=== PATIENT | male | born 1945 | race African-American/Black ===

== ENCOUNTER 2022-05-05 08:17 | Inpatient (IN) | payer BC, MEDICAID ==
[~2022-05-05] VITALS: Ht 175.3 cm; Wt 98.1 kg
[~2022-05-05 08:17] MED LIST: BENZ100C86 MT
[2022-05-05] MEDS ORDERED: IPRATROPIUM BROMIDE (0.02%) 0.5MG/2.5ML NEB HHN STA (09:04)
[2022-05-05] MEDS ORDERED: ALBUTEROL (0.083%) 2.5MG/3ML NEB HHN STA (09:04)
[2022-05-05] MEDS ORDERED: PREDNISONE 20MG TABLET PO STA (09:04)
[2022-05-05 10:01] LABS: EOSINOPHILS % 2.4 % (0.0-5.0); HEMATOCRIT. 49.5 % (42.0-52.0); HEMOGLOBIN. 16.5 g/dL (14.0-18.0); LYMPHOCYTES % 36.7 % (20.0-50.0); MEAN CORPUSCULAR HEMOGLOBIN 31.1 pg (28.0-32.0); MEAN CORPUSCULAR VOLUME 93.4 fL (80.0-94.0); MEAN PLATELET VOLUME 9.2 fl (7.4-10.4); MONOCYTES % 9.5 % (2.0-8.0); NEUTROPHILS % 50.4 % (40.0-76.0); PLATELET 134 x1000/uL (130-400); RED CELL DISTRIBUTION WIDTH 14.2 % (11.6-14.6)
[2022-05-05 10:01] LABS: BG BASE EXCESS -0.4 mmol/L (-2.0-2.0); BG CARBOXYHEMOGLOBIN 1.4 % (0.5-1.5); BG DEOXYHEMOGLOBIN 3.7 % (0.0-5.0); BG FRACTION INSPIRED OXYGEN 60; BG HCO3 ACT 24.4 mmol/L (22.0-26.0); BG METHEMOGLOBIN 0.5 % (0.0-1.5); BG OXYGEN SATURATION 96.2 % (92.0-98.5); BG OXYHEMOGLOBIN 94.4 % (94.0-97.0); BG PCO2 40.8 mmHg (35.0-45.0); BG PH 7.395 (7.350-7.450); BG PO2 81.5 mmHg (75.0-100.0); BG SAMPLE SITE RIGHT RADIAL; BG TOTAL HEMOGLOBIN 17.3 g/dL (12.0-18.0); BG VENT MODE HHN
[2022-05-05 10:09] LABS: CHLORIDE 104 mEq/L (98-107)
[2022-05-05] MEDS ORDERED: CLONIDINE 0.1MG TABLET PO PRN (12:45)
[2022-05-05] MEDS ORDERED: DIPHENHYDRAMINE 50MG/ML VIAL IV PRN (12:45)
[2022-05-05] MEDS ORDERED: ONDANSETRON HCL 4MG/2ML INJ IV PRN (12:45)
[2022-05-05] MEDS ORDERED: ACETAMINOPHEN 325MG TABLET PO PRN (12:45)
[2022-05-05] MEDS ORDERED: IPRATROPIUM/ALBUTEROL 0.5-3(2.5)MG/3ML NEB HHN PRN (12:45)
[2022-05-05] MEDS ORDERED: IPRATROPIUM/ALBUTEROL 0.5-3(2.5)MG/3ML NEB HHN ONE (15:15)
[2022-05-05 19:52] VITALS: BP 149/97
[2022-05-05 20:00] VITALS: BP 163/102
[2022-05-05] MEDS: IPRATROPIUM/ALBUTEROL 0.5-3(2.5)MG/3ML NEB HHN SCH (20:45)
[2022-05-05] MEDS: BUDESONIDE 0.5MG/2ML NEB HHN SCH (20:45)
[2022-05-06] VITALS: BP 138/90
[2022-05-06] MEDS: IPRATROPIUM/ALBUTEROL 0.5-3(2.5)MG/3ML NEB HHN SCH ×4 (01:35→12:05)
[2022-05-06 04:00] VITALS: BP 136/91
[2022-05-06] MEDS ORDERED: DEXTROSE 50% WATER 50ML SYRINGE IV PRN (07:15)
[2022-05-06 07:23] LABS: BASOPHILS % 0.6 % (0.0-2.0); EOSINOPHILS % 0.3 % (0.0-5.0); HEMATOCRIT. 48.5 % (42.0-52.0); HEMOGLOBIN. 16.3 g/dL (14.0-18.0); LYMPHOCYTES % 30.6 % (20.0-50.0); MEAN CORPUSCULAR HEMOGLOBIN 31.3 pg (28.0-32.0); MEAN PLATELET VOLUME 9.3 fl (7.4-10.4); MONOCYTES % 11.3 % (2.0-8.0); NEUTROPHILS % 57.2 % (40.0-76.0); PLATELET 125 x1000/uL (130-400); RED BLOOD CELL COUNT 5.21 mill/uL (4.7-6.1); RED CELL DISTRIBUTION WIDTH 14.3 % (11.6-14.6)
[2022-05-06 08:00] VITALS: BP 136/81
[2022-05-06] MEDS: INSULIN LISPRO 100 UNITS/ML SUBCUT SCH ×2 (08:00→12:54)
[2022-05-06 08:41] LABS: CHLORIDE 104 mEq/L (98-107)
[2022-05-06] MEDS: BUDESONIDE 0.5MG/2ML NEB HHN SCH (09:02)
[2022-05-06] MEDS ORDERED: BLOOD SUGAR DIAGNOSTIC STRIP TEST SCH (11:40)
[2022-05-06 12:00] VITALS: BP 130/88
[2022-05-06 13:27] VITALS: BP 130/88
== END 2022-05-06 14:15 | disposition home or self-care (01) | DRG 189 ==
LOC: ER 08:17 → EDBEDREQ 10:55 → 7EST 12:39 → EDBEDREQTM 12:46 → EDBEDREQSVC 12:46 → EDBEDREQ 12:46 → ENRESERV 16:07
PROVIDERS: ADMIT Internal Medicine; ATTEND Internal Medicine
DX: J96.01 Acute respiratory failure with hypoxia (principal); J44.1 Chronic obstructive pulmonary disease with (acute) exacerbation; I10 Essential (primary) hypertension; E11.9 Type 2 diabetes mellitus without complications; E78.00 Pure hypercholesterolemia, unspecified; R74.01 Elevation of levels of liver transaminase levels; Z91.14 Patient's other noncompliance with medication regimen
CPT/HCPCS: 36415; 36600; 71045; 80053; 82375; 82805; 82962; 83036; 83880; 84484; 85025; 93970; 94640; 94664; 99285; J1815; J7512; J7626

== ENCOUNTER 2022-05-08 07:14 | Inpatient (IN) | payer BC, MEDICAID ==
[~2022-05-08] VITALS: Ht 175.3 cm; Wt 99.8 kg
[2022-05-08] MEDS ORDERED: ALBUTEROL (0.083%) 2.5MG/3ML NEB HHN STA (07:40)
[2022-05-08] MEDS ORDERED: METHYLPREDNISOLONE SOD SUCC 125 MG/2 ML VIAL IV STA (07:40)
[2022-05-08] MEDS ORDERED: IPRATROPIUM BROMIDE (0.02%) 0.5MG/2.5ML NEB HHN STA (07:40)
[2022-05-08 09:21] LABS: CHLORIDE 105 mEq/L (98-107)
[2022-05-08 09:23] LABS: BASOPHILS % 0.7 % (0.0-2.0); EOSINOPHILS % 0.8 % (0.0-5.0); HEMATOCRIT. 48.9 % (42.0-52.0); HEMOGLOBIN. 16.2 g/dL (14.0-18.0); LYMPHOCYTES % 25.7 % (20.0-50.0); MEAN CORPUSCULAR VOLUME 93.2 fL (80.0-94.0); MEAN PLATELET VOLUME 9.2 fl (7.4-10.4); NEUTROPHILS % 64.8 % (40.0-76.0); PLATELET 112 x1000/uL (130-400); RED BLOOD CELL COUNT 5.25 mill/uL (4.7-6.1); RED CELL DISTRIBUTION WIDTH 14.1 % (11.6-14.6)
[2022-05-08] MEDS ORDERED: METHYLPREDNISOLONE SOD SUCC 125 MG/2 ML VIAL IV NR (10:45)
[2022-05-08] MEDS ORDERED: METHYLPREDNISOLONE SOD SUCC 40 MG/ML VIAL IV NR (10:45)
[2022-05-08] MEDS ORDERED: FUROSEMIDE 20MG/2ML VIAL IVP ONE (11:15)
[2022-05-08 15:08] VITALS: BP 151/99
[2022-05-08 15:37] VITALS: BP 151/99
[2022-05-08 16:00] VITALS: BP 144/96
[2022-05-08] MEDS ORDERED: PNEUMOCOCCAL 23-VAL P-SAC VAC 0.5 ML IM ONE (17:00)
[2022-05-08] MEDS ORDERED: CLONIDINE 0.1MG TABLET PO PRN (17:00)
[2022-05-08] MEDS ORDERED: LORAZEPAM 0.5MG TABLET PO PRN (17:00)
[2022-05-08] MEDS ORDERED: GUAIFENESIN 200MG/10ML SUGAR FREE UDC PO PRN (17:00)
[2022-05-08] MEDS ORDERED: IPRATROPIUM/ALBUTEROL 0.5-3(2.5)MG/3ML NEB HHN PRN (17:00)
[2022-05-08] MEDS ORDERED: ONDANSETRON HCL 4MG/2ML INJ IV PRN (17:00)
[2022-05-08] MEDS ORDERED: DOCUSATE SODIUM 100MG CAPSULE PO PRN (17:00)
[2022-05-08] MEDS ORDERED: ACETAMINOPHEN 325MG TABLET PO PRN ×2 (17:00)
[2022-05-08] MEDS ORDERED: HYDROCODONE/ACETAMINOPHEN 5/325MG TABLET PO PRN (17:00)
[2022-05-08] MEDS ORDERED: DEXTROSE 50% WATER 50ML SYRINGE IV PRN (17:15)
[2022-05-08] MEDS: METHYLPREDNISOLONE SOD SUCC 40 MG/ML VIAL IV SCH (17:24)
[2022-05-08] MEDS: BLOOD SUGAR DIAGNOSTIC STRIP TEST SCH (17:24)
[2022-05-08] MEDS ORDERED: NALOXONE HCL 0.4MG/ML VIAL IV PRN (17:30)
[2022-05-08 18:50] LABS: CLARITY URINE CLEAR (CLEAR); COLOR URINE YELLOW (YELLOW); KETONES URINE NEGATIVE (NEGATIVE); LEUKOCYTE ESTERASE URINE NEGATIVE (NEGATIVE); NITRITE URINE NEGATIVE (NEGATIVE); OCCULT BLOOD URINE NEGATIVE (NEGATIVE); PROTEIN URINE NEGATIVE (NEGATIVE); SPECIFIC GRAVITY URINE 1.012 (1.005-1.030); UROBILINOGEN URINE 0.2 E.U./dL (0.2-1.0)
[2022-05-08 19:04] LABS: *AMPHETAMINES SCREEN URINE NEGATIVE (NEGATIVE); *BARBITURATES SCREEN URINE NEGATIVE (NEGATIVE); *BENZODIAZEPINES SCREEN URINE NEGATIVE (NEGATIVE); *COCAINE SCREEN URINE NEGATIVE (NEGATIVE); CANNABINOID URINE SCREEN NEGATIVE (NEGATIVE); METHADONE URINE SCREEN NEGATIVE (NEGATIVE); OPIATES URINE SCREEN NEGATIVE (NEGATIVE); PHENCYCLIDINE URINE SCREEN NEGATIVE (NEGATIVE)
[2022-05-08 20:00] VITALS: BP 148/92
[2022-05-09] VITALS: BP 135/86
[2022-05-09 04:00] VITALS: BP 139/94
[2022-05-09] MEDS: BLOOD SUGAR DIAGNOSTIC STRIP TEST SCH ×4 (06:27→21:01)
[2022-05-09] MEDS: METHYLPREDNISOLONE SOD SUCC 40 MG/ML VIAL IV SCH ×4 (06:28→21:01)
[2022-05-09 07:08] LABS: BASOPHILS % 0.4 % (0.0-2.0); HEMATOCRIT. 45.5 % (42.0-52.0); HEMOGLOBIN. 15.4 g/dL (14.0-18.0); LYMPHOCYTES % 18.8 % (20.0-50.0); MEAN CORPUSCULAR HEMOGLOBIN 31.2 pg (28.0-32.0); MEAN CORPUSCULAR VOLUME 92.1 fL (80.0-94.0); MEAN PLATELET VOLUME 9.9 fl (7.4-10.4); MONOCYTES % 7.6 % (2.0-8.0); NEUTROPHILS % 73.2 % (40.0-76.0); PLATELET 114 x1000/uL (130-400); RED BLOOD CELL COUNT 4.94 mill/uL (4.7-6.1); RED CELL DISTRIBUTION WIDTH 14.2 % (11.6-14.6)
[2022-05-09 07:21] LABS: CHLORIDE 107 mEq/L (98-107)
[2022-05-09 08:00] VITALS: BP 156/75
[2022-05-09] MEDS: THIAMINE HCL 100MG TABLET PO SCH (09:58)
[2022-05-09 12:00] VITALS: BP 133/87
[2022-05-09] MEDS: INSULIN LISPRO 100 UNITS/ML SUBCUT SCH ×3 (12:10→21:02)
[2022-05-09 12:40] LABS: BG BASE EXCESS -2.4 mmol/L (-2.0-2.0); BG CARBOXYHEMOGLOBIN 1.2 % (0.5-1.5); BG DEOXYHEMOGLOBIN 7.7 % (0.0-5.0); BG FRACTION INSPIRED OXYGEN 21; BG HCO3 ACT 21.4 mmol/L (22.0-26.0); BG METHEMOGLOBIN 0.2 % (0.0-1.5); BG OXYGEN SATURATION 92.2 % (92.0-98.5); BG OXYHEMOGLOBIN 90.9 % (94.0-97.0); BG PCO2 34.3 mmHg (35.0-45.0); BG PH 7.412 (7.350-7.450); BG PO2 62.4 mmHg (75.0-100.0); BG SAMPLE SITE RIGHT BRACHIAL; BG VENT MODE ROOM AIR
[2022-05-09 14:59] LABS: HEPATITIS B SURFACE ANTIGEN NEGATIVE
[2022-05-09] MEDS ORDERED: ALBU18HF2 IH (17:52)
[2022-05-09] MEDS ORDERED: SALM50DI INH (17:52)
[2022-05-09] MEDS ORDERED: MED4 MT (17:52)
[2022-05-09 18:00] VITALS: BP 132/89
[2022-05-09 20:00] VITALS: BP 140/87
[2022-05-09] MEDS: IPRATROPIUM/ALBUTEROL 0.5-3(2.5)MG/3ML NEB HHN SCH (21:44)
[2022-05-09] MEDS: BUDESONIDE 0.5MG/2ML NEB HHN SCH (21:44)
[2022-05-10] VITALS: BP 128/80
[2022-05-10] MEDS: IPRATROPIUM/ALBUTEROL 0.5-3(2.5)MG/3ML NEB HHN SCH ×6 (01:29→20:26)
[2022-05-10 04:00] VITALS: BP 137/89
[2022-05-10] MEDS: BLOOD SUGAR DIAGNOSTIC STRIP TEST SCH ×4 (07:00→21:27)
[2022-05-10] MEDS: METHYLPREDNISOLONE SOD SUCC 40 MG/ML VIAL IV SCH ×3 (07:00→21:25)
[2022-05-10] MEDS: INSULIN LISPRO 100 UNITS/ML SUBCUT SCH ×4 (07:06→21:26)
[2022-05-10 07:26] LABS: CHLORIDE 104 mEq/L (98-107)
[2022-05-10 07:29] LABS: BASOPHILS % 0.2 % (0.0-2.0); HEMATOCRIT. 45.6 % (42.0-52.0); HEMOGLOBIN. 15.3 g/dL (14.0-18.0); LYMPHOCYTES % 9.8 % (20.0-50.0); MEAN CORPUSCULAR HEMOGLOBIN 31.1 pg (28.0-32.0); MEAN CORPUSCULAR VOLUME 92.8 fL (80.0-94.0); MEAN PLATELET VOLUME 9.9 fl (7.4-10.4); MONOCYTES % 4.2 % (2.0-8.0); NEUTROPHILS % 85.8 % (40.0-76.0); PLATELET 123 x1000/uL (130-400); RED BLOOD CELL COUNT 4.92 mill/uL (4.7-6.1); RED CELL DISTRIBUTION WIDTH 13.9 % (11.6-14.6)
[2022-05-10 08:00] VITALS: BP 149/92
[2022-05-10] MEDS: THIAMINE HCL 100MG TABLET PO SCH (09:11)
[2022-05-10] MEDS: BUDESONIDE 0.5MG/2ML NEB HHN SCH ×2 (09:15→20:27)
[2022-05-10 12:00] VITALS: BP 130/71
[2022-05-10] MEDS ORDERED: METF-416 PO (15:49)
[2022-05-10] MEDS ORDERED: ATOR10TA69 MT (15:49)
[2022-05-10] MEDS ORDERED: GLIP10TA10 PO (15:50)
[2022-05-10] MEDS ORDERED: AMLO5TAB88 PO (15:51)
[2022-05-10 16:00] VITALS: BP 141/76
[2022-05-10] MEDS ORDERED: LACTULOSE 20G/30ML UDC PO NR (16:30)
[2022-05-10 20:00] VITALS: BP 127/67
[2022-05-10] MEDS: INSULIN GLARGINE 100 UNITS/ML SUBCUT SCH (21:27)
[2022-05-11] VITALS: BP 144/81
[2022-05-11] MEDS: IPRATROPIUM/ALBUTEROL 0.5-3(2.5)MG/3ML NEB HHN SCH ×6 (00:55→21:29)
[2022-05-11 04:00] VITALS: BP 143/89
[2022-05-11] MEDS: METHYLPREDNISOLONE SOD SUCC 40 MG/ML VIAL IV SCH ×3 (06:03→21:53)
[2022-05-11] MEDS: BLOOD SUGAR DIAGNOSTIC STRIP TEST SCH ×4 (06:04→20:39)
[2022-05-11] MEDS: INSULIN LISPRO 100 UNITS/ML SUBCUT SCH ×4 (06:04→21:52)
[2022-05-11 07:32] LABS: BASOPHILS % 0.2 % (0.0-2.0); HEMATOCRIT. 44.6 % (42.0-52.0); HEMOGLOBIN. 14.7 g/dL (14.0-18.0); LYMPHOCYTES % 9.9 % (20.0-50.0); MEAN CORPUSCULAR HEMOGLOBIN 30.9 pg (28.0-32.0); MEAN CORPUSCULAR VOLUME 93.6 fL (80.0-94.0); MEAN PLATELET VOLUME 9.8 fl (7.4-10.4); MONOCYTES % 5.8 % (2.0-8.0); NEUTROPHILS % 84.1 % (40.0-76.0); PLATELET 115 x1000/uL (130-400); RED BLOOD CELL COUNT 4.76 mill/uL (4.7-6.1); RED CELL DISTRIBUTION WIDTH 13.9 % (11.6-14.6)
[2022-05-11 07:55] LABS: CHLORIDE 105 mEq/L (98-107)
[2022-05-11 08:00] VITALS: BP 154/89
[2022-05-11] MEDS: BUDESONIDE 0.5MG/2ML NEB HHN SCH ×2 (08:45→21:29)
[2022-05-11] MEDS: THIAMINE HCL 100MG TABLET PO SCH (08:54)
[2022-05-11] MEDS: INSULIN GLARGINE 100 UNITS/ML SUBCUT SCH ×2 (08:56→23:10)
[2022-05-11 12:00] VITALS: BP 151/72
[2022-05-11 16:00] VITALS: BP 151/65
[2022-05-11 20:00] VITALS: BP 149/96
[2022-05-12] VITALS: BP 137/83
[2022-05-12] MEDS: IPRATROPIUM/ALBUTEROL 0.5-3(2.5)MG/3ML NEB HHN SCH ×4 (00:59→12:37)
[2022-05-12 04:00] VITALS: BP 148/91
[2022-05-12] MEDS: METHYLPREDNISOLONE SOD SUCC 40 MG/ML VIAL IV SCH (05:34)
[2022-05-12] MEDS: BLOOD SUGAR DIAGNOSTIC STRIP TEST SCH ×2 (05:52→11:40)
[2022-05-12] MEDS: INSULIN LISPRO 100 UNITS/ML SUBCUT SCH ×2 (06:16→13:09)
[2022-05-12 08:00] VITALS: BP 140/96
[2022-05-12] MEDS: INSULIN GLARGINE 100 UNITS/ML SUBCUT SCH (09:03)
[2022-05-12] MEDS: THIAMINE HCL 100MG TABLET PO SCH (09:03)
[2022-05-12] MEDS: BUDESONIDE 0.5MG/2ML NEB HHN SCH (09:17)
[2022-05-12 12:00] VITALS: BP 146/89
[2022-05-12 13:28] VITALS: BP 134/80
[2022-05-13] MEDS ORDERED: PREDNISONE 20MG TABLET PO SCH (09:00)
== END 2022-05-12 14:05 | disposition home health service (06) | DRG 189 ==
LOC: ER 07:14 → 7EST 11:57
PROVIDERS: ADMIT Internal Medicine; ATTEND Internal Medicine
DX: J96.00 Acute respiratory failure, unspecified whether with hypoxia or hypercapnia (principal); J44.1 Chronic obstructive pulmonary disease with (acute) exacerbation; I10 Essential (primary) hypertension; E11.65 Type 2 diabetes mellitus with hyperglycemia; E78.00 Pure hypercholesterolemia, unspecified; K76.0 Fatty (change of) liver, not elsewhere classified; B19.20 Unspecified viral hepatitis C without hepatic coma; F17.210 Nicotine dependence, cigarettes, uncomplicated; Z82.49 Family history of ischemic heart disease and other diseases of the circulatory system
CPT/HCPCS: 36415; 36600; 71045; 76700; 80048; 80053; 80305; 81003; 82375; 82805; 82962; 83036; 83880; 84484; 85025; 86705; 86709; 86803; 87340; 87804; 93005; 94618; 94640; 94664; 99285; J1815; J1940; J2920; J7626

== ENCOUNTER 2022-09-24 08:23 | Emergency (ER) | payer BC, MEDICAID ==
[~2022-09-24] VITALS: Ht 185.4 cm; Wt 101.0 kg
[~2022-09-24 08:23] MED LIST changes: +ALBU18HF2 IH; +AMLO5TAB88 PO; +ATOR10TA69 MT; -BENZ100C86 MT; +GLIP10TA10 PO; +MED4 MT; +METF-416 PO; +SALM50DI INH
[2022-09-24 08:33] VITALS: BP 168/97
[2022-09-24] MEDS ORDERED: NYST15OI TP (08:50)
== END 2022-09-24 09:37 | disposition home or self-care (01) ==
LOC: ER 08:23
DX: B37.49 Other urogenital candidiasis (principal); I10 Essential (primary) hypertension; E11.9 Type 2 diabetes mellitus without complications; Z79.899 Other long term (current) drug therapy; Z79.84 Long term (current) use of oral hypoglycemic drugs
CPT/HCPCS: 99283

== ENCOUNTER 2022-10-31 08:22 | Emergency (ER) | payer BC, MEDICAID ==
[~2022-10-31] VITALS: Ht 175.3 cm; Wt 102.0 kg
[~2022-10-31 08:22] MED LIST changes: +NYST15OI TP
[2022-10-31 08:26] VITALS: BP 160/99
[2022-10-31] MEDS ORDERED: NYST15OI TP ×3 (09:46→09:48)
== END 2022-10-31 10:00 | disposition home or self-care (01) ==
LOC: ER 08:22
DX: Z76.0 Encounter for issue of repeat prescription (principal); N48.1 Balanitis; I10 Essential (primary) hypertension; E11.9 Type 2 diabetes mellitus without complications; J44.9 Chronic obstructive pulmonary disease, unspecified; E78.00 Pure hypercholesterolemia, unspecified; Z79.899 Other long term (current) drug therapy; Z79.84 Long term (current) use of oral hypoglycemic drugs
CPT/HCPCS: 99281

== ENCOUNTER 2023-01-11 07:46 | Emergency (ER) | payer BC, MEDICAID ==
[~2023-01-11] VITALS: Ht 175.3 cm; Wt 99.0 kg
[~2023-01-11 07:46] MED LIST changes: -MED4 MT; -NYST15OI TP
[2023-01-11] MEDS ORDERED: ACETAMINOPHEN 325MG TABLET PO ONE (10:00)
[2023-01-11] MEDS ORDERED: LIDOCAINE 5% PATCH TOP SCH (10:00)
[2023-01-11 10:05] LABS: BASOPHILS % 0.8 % (0.0-2.0); EOSINOPHILS % 4.2 % (0.0-5.0); HEMATOCRIT. 48.9 % (42.0-52.0); HEMOGLOBIN. 16.5 g/dL (14.0-18.0); MEAN CORPUSCULAR HEMOGLOBIN 30.4 pg (28.0-32.0); MEAN CORPUSCULAR VOLUME 90.1 fL (80.0-94.0); MEAN PLATELET VOLUME 9.4 fl (7.4-10.4); PLATELET 104 x1000/uL (130-400); RED BLOOD CELL COUNT 5.42 mill/uL (4.7-6.1)
[2023-01-11 10:13] LABS: CHLORIDE 105 mEq/L (98-107)
[2023-01-11] MEDS ORDERED: ACET-2708 MT (10:54)
[2023-01-11 11:22] VITALS: BP 136/88
== END 2023-01-11 11:23 | disposition home or self-care (01) ==
LOC: ER 07:46
DX: K80.20 Calculus of gallbladder without cholecystitis without obstruction (principal); I10 Essential (primary) hypertension; E78.00 Pure hypercholesterolemia, unspecified; J44.1 Chronic obstructive pulmonary disease with (acute) exacerbation; E11.9 Type 2 diabetes mellitus without complications; Z00.00 Encounter for general adult medical examination without abnormal findings; Z79.899 Other long term (current) drug therapy
CPT/HCPCS: 36415; 74176; 80053; 85025; 99284